=== PATIENT | female | born 2000 | race Two or more races ===

== ENCOUNTER 2024-06-08 16:07 | Emergency (ER) | payer SELFPAY ==
[~2024-06-08] VITALS: Ht 175.3 cm; Wt 87.4 kg
[2024-06-08 16:25] VITALS: BP 130/74; PULSE 95; RESP 16; O2SAT 99
[2024-06-08 20:50] LABS: Urine Bacteria None Seen /hpf (None Seen)
[2024-06-08 21:25] LABS: Urine Blood Negative /uL (Negative); Urine Clarity Clear (Clear); Urine Color Light-Yellow (Yellow); Urine Protein, UAD Negative (Negative); Urine Specific Gravity 1.012 (1.001-1.035); Urine Urobilinogen Normal (Negative); Urine WBC 1 /hpf (0 - 5)
== END 2024-06-08 20:05 | disposition left against medical advice (07) ==
LOC: ER 16:07
DX: R10.84 Generalized abdominal pain (principal); R53.83 Other fatigue; R20.2 Paresthesia of skin; Z53.21 Procedure and treatment not carried out due to patient leaving prior to being seen by health care provider
CPT/HCPCS: 81001